=== PATIENT | male | born 1985 | race African-American/Black ===

== ENCOUNTER 2019-08-17 23:36 | Emergency (ER) | payer OTHER ==
[~2019-08-17] VITALS: Ht 177.8 cm; Wt 78.5 kg
[2019-08-17 23:40] VITALS: BP 109/60
[2019-08-18] MEDS ORDERED: IPRATRPIUM/ALBUTEROL 0.5/2.5MG 3 ML NEBU. ONE (00:06)
[2019-08-18] MEDS ORDERED: IPRATRPIUM/ALBUTEROL 0.5/2.5MG 3 ML NEBU. NEB ONE (00:30)
--- NOTE | 2019-08-18 00:34 | PHYS DOC ---
Past History Past Medical History: No Pertinent History Past Surgical History: No Surgical History Alcohol Use: None Drug Use: Marijuana Social History Narrative: mj in past Adult General Chief Complaint Chief Complaint: COUGH HPI HPI Patient is a 34-year-old male presenting with cough productive of yellow sputum and occasional shortness of breath with significant coughing as well as some chest tightness associated with that same cough. No fever that he knows of Review of Systems Review of Systems Constitutional: Denies fever or chills [] Eyes: Denies change in visual acuity, redness, or eye pain [] HENT: pos sinus congestion and cough Cardiovascular: No additional information not addressed in HPI [] GI: Denies abdominal pain, nausea, vomiting, bloody stools or diarrhea [] : Denies dysuria or hematuria [] Musculoskeletal: Denies back pain or joint pain [] Integument: Denies rash or skin lesions [] Neurologic: Denies headache, focal weakness or sensory changes [] Endocrine: Denies polyuria or polydipsia [] All other systems were reviewed and found to be within normal limits, except as documented in this note. Current Medications Current Medications Current Medications Medications (Trade) Dose Ordered Sig/Suzy Start Time Stop Time Status Last Admin Dose Admin Albuterol/ Ipratropium (Duoneb) 3 ml STK-MED ONCE 08/18/19 00:06 08/18/19 00:06 [place] Allergies Allergies Allergies Coded Allergies Type Severity Reaction Last Updated Verified No Known Drug Allergies 08/17/19 No Physical Exam Physical Exam Constitutional: Well developed, well nourished, no acute distress, non-toxic appearance. [] HENT: Normocephalic, atraumatic, bilateral external ears normal, oropharynx moist, no oral exudates, nose normal. [] Eyes: PERRLA, EOMI, conjunctiva normal, no discharge. [] Neck: Normal range of motion, no tenderness, supple, no stridor. [] Cardiovascular:Heart rate regular rhythm, no murmur [] Lungs & Thorax: frequent reactive cough with faint wheezing noted Abdomen: Bowel sounds normal, soft, no tenderness, no masses, no pulsatile masses. [] Skin: Warm, dry, no erythema, no rash. [] Back: No tenderness, no CVA tenderness. [] Extremities: No tenderness, no cyanosis, no clubbing, ROM intact, no edema. [] Neurologic: Alert and oriented X 3, normal motor function, normal sensory function, no focal deficits noted. [] Psychologic: Affect normal, judgement normal, mood normal. [] Current Patient Data Vital Signs Vital Signs Date Time Temp Pulse Resp B/P (MAP) Pulse Ox O2 Delivery O2 Flow Rate FiO2 08/18/19 00:22 99 Room Air 08/17/19 23:40 98.5 54 20 rature (Fahrenheit): * 98.5 degrees F (97.6-99.5) Patient Temperature * 98.5 degrees F (97.5-99.5) Temperature Source * Oral Blood Pressure Systolic * 109 mm Hg (100-140) Blood Pressure Diastolic * 60 mm Hg (60-100) Blood Pressure Mean * 76 mm Hg Pulse Rate * 54 beats per minute (60-90) L Respiratory Rate * 20 breaths per minute (12-24) Oxygen Delivery Method * Room Air Bedside Pulse Oximetry * 100 % Treatment Prior to Arrival * No Complaint of Pain * Yes EKG EKG [] Radiology/Procedures Radiology/Procedures [] Impressions: my read cxr neg acute. Course & Med Decision Making Course & Med Decision Making Pertinent Labs and Imaging studies reviewed. (See chart for details) []suspect bronchitis with reactive airway disease trial albuterol in er resulted in slightly improved air movement decadron albuterol inhaler return prec discussed Dragede Disclaimer Dragon Disclaimer This electronic medical record was generated, in whole or in part, using a voice recognition dictation system. Departure Departure: Impression: Primary Impression: Reactive airway disease Disposition: HOME, SELF-CARE Condition: STABLE Referrals: PCP,NO (PCP) REY LAWRENCE MD Aug 18, 2019 00:34
[2019-08-18] MEDS ORDERED: ALBU2.5V8 IH (00:35)
[2019-08-18] MEDS ORDERED: DEXAMETHASONE SOD PHOS 10 MG/ML VIAL PO ONE (01:00)
--- NOTE | 2019-08-18 02:39 | RAD ---
Chest PA and lateral: Reason for examination: Short of breath with cough and congestion. The heart size is normal. Mediastinum is unremarkable. Lung mcghee are clear. No acute bony abnormalities are seen. Impression: No acute cardiopulmonary disease. Electronically signed by: Yary Montilla MD (08/18/2019 2:36 AM) [id number]
== END 2019-08-18 00:48 | disposition home or self-care (01) ==
LOC: ER 23:36
DX: J45.909 Unspecified asthma, uncomplicated (principal)
CPT/HCPCS: 71046; 94640; 99284; J1100; J7620